=== PATIENT | female | born 1955 | race Caucasian/White ===

== ENCOUNTER 2018-12-05 15:55 | Emergency (ER) | payer OTHER ==
[~2018-12-05] VITALS: Ht 160 cm; Wt 104.5 kg
[~2018-12-05 15:55] MED LIST: AMLO5TAB9 PO; BENA5TAB26 PO; FLUO-191 PO; INSLAN; LORA10TA7 PO; METF500T20 PO; OXYBUTIN; PANT40TA25 PO; PIOG15TA6 PO; RISP3 PO; SIMV-261 PO; TRAM50TA4 PO
[2018-12-05 16:11] LABS: GLUCOSE,POINT OF CARE 143 MG/DL (70-110)
[2018-12-05 18:44] VITALS: BP 139/78
== END 2018-12-05 18:53 | disposition home or self-care (01) ==
LOC: EMS 15:55
DX: M25.462 Effusion, left knee (principal); M17.12 Unilateral primary osteoarthritis, left knee; E11.9 Type 2 diabetes mellitus without complications; I10 Essential (primary) hypertension; K21.9 Gastro-esophageal reflux disease without esophagitis; F32.9 Major depressive disorder, single episode, unspecified; Z79.899 Other long term (current) drug therapy; Z88.2 Allergy status to sulfonamides